=== PATIENT | male | born 1995 | race Caucasian/White ===

== ENCOUNTER 2017-05-19 16:53 | Inpatient (IN) | payer MEDICAID ==
[~2017-05-19] VITALS: Ht 167.6 cm; Wt 94.9 kg
[2017-05-19 17:02] VITALS: Ht 167.6 cm; Wt 94.9 kg
[2017-05-19 17:40] LABS: microscopic required? NO
[2017-05-19 18:01] LABS: urine erythrocyte NEGATIVE (NEGATIVE)
[2017-05-19 18:02] LABS: BASOPHIL % 0.5 % (0-2); PLATELET COUNT 221 x10^3mcL (130-400); RED CELL DISTRIBUTION WIDTH 12.8 % (11.5-14.5)
[2017-05-19 18:12] LABS: CALCIUM 9.3 mg/dL (8.5-10.1); CARBON DIOXIDE 26.3 mmol/L (21-32); CHLORIDE SERUM 103 mmol/L (98-107); CREATININE SERUM 0.8 mg/dL (0.7-1.3); GFR1 > 60 mL/min; GLUCOSE SERUM 97 mg/dL (74-106); POTASSIUM SERUM 3.6 mmol/L (3.5-5.1); SODIUM SERUM 137 mmol/L (136-145)
[2017-05-19 18:17] LABS: ALBUMIN 3.8 g/dL (3.4-5.0); ALKALINE PHOSPHATASE 76 U/L (46-116); ALT/SGPT 31 U/L (16-63); AST/SGOT 21 U/L (15-37); BILIRUBIN TOTAL 0.29 mg/dL (0.20-1.00); LIPASE 82 IU/L (73-393); TOTAL PROTEIN, SERUM 7.8 g/dL (6.4-8.2)
[2017-05-19 20:04] LABS: AMPHETAMINE QUAL UR NONE DETECTED (NEG <=1000)
[2017-05-19 20:06] VITALS: BP 140/76
[2017-05-19 20:22] LABS: AMYLASE 27 U/L (25-115); CHOLESTEROL 219 mg/dL (<200); CHOLESTEROL/HDL RATIO 5.9; HDL CHOLESTEROL 37 mg/dL (40-60); MAGNESIUM 1.8 mg/dL (1.8-2.4); PHOSPHOROUS 3.5 mg/dL (2.5-4.9); TRIGLYCERIDES 494 mg/dL (<150)
[2017-05-19 20:26] LABS: T3 TOTAL 1.17 ng/mL
[2017-05-19 20:27] LABS: FREE T4 0.96 ng/dL (0.76-1.46); FREE THYROXINE INDEX 2.6 ug/dL (1.4-4.5); T4(THYROXINE) 6.6 ug/dL (4.7-13.3)
[2017-05-20 04:57] VITALS: BP 115/52
[2017-05-20 08:52] VITALS: BP 108/70
[2017-05-20 14:00] VITALS: BP 144/73
[2017-05-20 17:46] VITALS: BP 116/54
[2017-05-20 20:54] VITALS: BP 108/56
[2017-05-21 06:00] VITALS: BP 105/59
[2017-05-21 06:24] LABS: BASOPHIL % 0.2 % (0-2); PLATELET COUNT 196 x10^3mcL (130-400)
[2017-05-21 06:39] LABS: CALCIUM 8.7 mg/dL (8.5-10.1); CARBON DIOXIDE 24.1 mmol/L (21-32); CHLORIDE SERUM 104 mmol/L (98-107); CREATININE SERUM 0.9 mg/dL (0.7-1.3); GFR1 > 60 mL/min; GLUCOSE SERUM 118 mg/dL (74-106); MAGNESIUM 1.9 mg/dL (1.8-2.4); PHOSPHOROUS 3.2 mg/dL (2.5-4.9); POTASSIUM SERUM 3.7 mmol/L (3.5-5.1); SODIUM SERUM 139 mmol/L (136-145)
[2017-05-21] MEDS ORDERED: IBUPROFEN800 MG PO (07:35)
[2017-05-21 08:47] VITALS: BP 116/67
[2017-05-21 13:08] VITALS: BP 116/67
== END 2017-05-21 14:06 | disposition home or self-care (01) | DRG 228 ==
LOC: ED 16:53 → EDBD 16:53 → DU 19:32 → EDBEDREQ 19:32 → MU 19:32 → DU 20:00 → MU 05-20 09:38
PROVIDERS: Emergency Medicine; Family Medicine; Surgery
PROC: 0YU60JZ Supplement Left Inguinal Region with Synthetic Substitute, Open Approach (ICD-10-PCS; principal; 2017-05-20 10:30)
DX: K40.90 Unilateral inguinal hernia, without obstruction or gangrene, not specified as recurrent (principal); E78.5 Hyperlipidemia, unspecified; E66.9 Obesity, unspecified; Z68.33 Body mass index [BMI] 33.0-33.9, adult; R73.03 Prediabetes
CPT/HCPCS: 83880; 84439; 94150; C1781; J0690; J1644; J1885; J2250; J2270; J2405; J2704; J3010; J3490; J7030; J7120; Q9967

== ENCOUNTER → 2017-05-26 | Outpatient (CLI) | payer MEDICAID ==
[~2017-05-26] MED LIST: IBUPROFEN800 MG PO
== END | disposition home or self-care (01) ==
LOC: US 11:11
PROC: BV44ZZZ Ultrasonography of Scrotum (ICD-10-PCS; principal; 2017-05-26)
DX: Z09 Encounter for follow-up examination after completed treatment for conditions other than malignant neoplasm (principal)